=== PATIENT | male | born 1950 | race Caucasian/White ===

== ENCOUNTER → 2016-06-01 | Outpatient (CLI) | payer OTHER ==
[~2016-06-01] MED LIST: ARC10 PO; ASPCH81 PO; LVTUNK; PRLSR20 PO; TPRSRUNK; [UNRECOGNIZED DRUG - CODE]
[2016-06-01 13:10] LABS: ALT/SGPT 27 U/L (12-78); BLOOD UREA NITROGEN 14 mg/dl (7-18); BUN/CREATININE RATIO 13.8 (10-20); CALCIUM 9.1 mg/dl (8.5-10.1); CARBON DIOXIDE 26 mmol/L (21-32); CHLORIDE 101 mmol/L (98-107); CHOLESTEROL 189 mg/dl (0-200); GLUCOSE 103 mg/dl (70-99); POTASSIUM 3.8 mmol/L (3.5-5.1); SODIUM 137 mmol/L (136-145)
[2016-06-01 13:15] LABS: ALB/GLOB RATIO 1.1 (0.9-2); ALKALINE PHOSPHATASE 80 U/L (45-117); AST/SGOT 21 U/L (15-37); CHOLESTEROL/HDL RATIO 4.2; HDL CHOLESTEROL 45 mg/dl; LDL CHOLESTEROL CALCULATED 122 mg/dl; TRIGLYCERIDES 109 mg/dl (0-150); VERY LOW DENSITY LIPOPROT CALC 22 mg/dl
[2016-06-01 13:24] LABS: ESTIMATED AVERAGE GLUCOSE 111 mg/dl; HA1C FLAG Normal (Normal)
== END | disposition home or self-care (01) ==
LOC: C.LABPVFM 09:42
PROVIDERS: ATTEND Nurse Practitioner
DX: I10 Essential (primary) hypertension (principal); R73.01 Impaired fasting glucose; Z13.220 Encounter for screening for lipoid disorders

== ENCOUNTER 2016-08-08 11:44 | Emergency (ER) | payer OTHER ==
[~2016-08-08] VITALS: Ht 182.9 cm; Wt 128.3 kg
[2016-08-08 12:02] VITALS: TEMP 37.6; Ht 182.9 cm; Wt 128.3 kg
--- NOTE | 2016-08-08 13:07 | EMERGENCY ROOM VISIT NOTE ---
History Report prepared by Tima: Kate Salamanca Under the Supervision of: Dr. Juan Alberto Ling D.O. First contact with patient: 12:42 Chief Complaint: RECTAL PAIN Stated Complaint: RECTUM History of Present Illness The patient is a 65 year old male who presents to the Emergency Room with complaints of persistent rectal pain that began a couple weeks ago. He currently rates his discomfort as a 10/10 in severity. The patient states that he thinks he has something lodged in his rectum. He describes his pain as a sharp pain. The patient states that he thought he had a fissure again, but states that his pain has continued to worsen. The patient states that he was at [facility] today and was referred to the emergency department for further work up. He denies any nausea, vomiting, or diarrhea. Source of History: patient Onset: couple weeks ago Position: other (Rectal) Symptom Intensity: 10/10 Quality: sharp Timing: worsening, other (persistent) Associated Symptoms: No diarrhea, No nausea, No vomiting Review of Systems See HPI for pertinent positives & negatives. A total of 10 systems reviewed and were otherwise negative. Past Medical & Surgical No pertinent history stated. Family History Lung disease Stroke Social History Smoking Status: Never Smoker Marital Status: Housing Status: lives with significant other Occupation Status: disabled Current/Historical Medications Unable to Obtain Active Prescriptions or Reported Meds Allergies Coded Allergies: No Known Allergies (Verified , 08/08/16) Physical Exam Vital Signs Date Time Temp Pulse Resp B/P Pulse Ox O2 Delivery O2 Flow Rate FiO2 08/08/16 12:02 37.6 91 20 142/78 91 Room Air Physical Exam CONSTITUTIONAL/VITAL SIGNS: Reviewed / noted above. GENERAL: Non-toxic in appearance. INTEGUMENTARY: Warm, dry, and [place]. HEAD: Normocephalic. EYES: without scleral icterus or trauma. ENT/OROPHARYNX: clear and moist. LYMPHADENOPATHY/NECK: Is supple without lymphadenopathy or meningismus. RESPIRATORY: Lungs clear and equal. CARDIOVASCULAR: Regular rate and rhythm. GI/ABDOMEN: Soft and nontender. No organomegaly or pulsatile mass. No rebound or guarding. Normal bowel sounds. EXTREMITIES: Warm and well perfused. BACK: No CVA tenderness. RECTAL: There is a bone-like structure in the rectum at the 8 o'clock position that was spine like NEUROLOGICAL: Intact without focal deficits. PSYCHIATRIC: normal affect. MUSCULOSKELETAL: Normally developed with good muscle tone. Medical Decision & Procedures Procedure Foreign body removal: a iris like foreign body measuring about 2 cm in diameter with 2 small spines was removed from the rectum imbedded in the mucosa. No evidence of infection. Minimal bleeding following the procedure. ED Course 1243: Previous medical records were reviewed. The patient was evaluated in room C3. A complete history and physical examination was performed. 1247: I did a rectal exam at this time. See physical exam for further detail. I discussed all the exam findings with him and I discussed the treatment plan. He verbalized complete understanding and agreement. He is ready to go home shortly. Medical Decision Differential includes fissure, mass, hemorrhoid, foreign body. This is a 65-year-old male who presents to the ED with a chief complaint of a foreign body in his rectal area. The patient states that his been therefore at least a week or 2. He states that it is irritating him as it is poking him with certain movements. He is unsure how it got there. He denies intentionally placing anything there. His exam reveals a osseous spiny-like structure at the 7 or 8 o'clock position of the rectum. This is palpable and somewhat visible by spreading the buttocks. Forceps were used to grab the osseous-like structure. It was broken into 3 parts. These were removed. There was no evidence of any residual foreign body there. It has the appearance of a bony type structure with 2 small spiny parts. Total size is about 2 cm. The patient stated that his symptoms improved. He was feeling better. Reexam did not reveal any additional foreign bodies. He was felt to be stable for discharge. There is minimal bleeding at the site after removal. The bony object appear to be partially embedded into the mucosa of the rectum. Impression Primary Impression: Foreign body anus/rectum Scribe Attestation The scribe's documentation has been prepared under my direction and personally reviewed by me in its entirety. I confirm that the note above accurately reflects all work, treatment, procedures, and medical decision making performed by me. Departure Information Dispostion Home / Self-Care Prescriptions Unable to Obtain Active Prescriptions or Reported Meds Referrals Carmelina Hager C.R.N.P (PCP) Patient Instructions My [facility] Additional Instructions Follow-up with your doctor for recheck. Return for any concerns or worsening.
[2016-08-08 13:18] VITALS: BP 112/78; PULSE 87; O2SAT 94
== END 2016-08-08 13:18 | disposition home or self-care (01) ==
LOC: C.EDB 11:45 → C.EDC 13:18
DX: T18.5XXA Foreign body in anus and rectum, initial encounter (principal); X58.XXXA Exposure to other specified factors, initial encounter; Y92.89 Other specified places as the place of occurrence of the external cause

== ENCOUNTER → 2016-08-08 | Outpatient (CLI) | payer OTHER ==
--- NOTE | 2016-08-08 10:57 | DIAGNOSTIC IMAGING REPORT ---
KUB CLINICAL HISTORY: FOREIGN BODY ANUS/RECTUM foreign body COMPARISON STUDY: No previous studies for comparison. FINDINGS: The soft tissues, psoas shadows, renal outlines and intestinal gas pattern appear normal. There is no evidence for bowel obstruction. No abnormal abdominal calcifications are seen. IMPRESSION: Negative study. No evidence for radiopaque foreign body. Electronically signed by: Dony Wayne M.D. 08/08/2016 10:56 AM Dictated Date/Time: 08/08/2016 10:56 AM
== END | disposition home or self-care (01) ==
LOC: C.RADPV 10:38
PROVIDERS: ATTEND Nurse Practitioner Family
DX: T18.5XXA Foreign body in anus and rectum, initial encounter (principal); X58.XXXA Exposure to other specified factors, initial encounter

== ENCOUNTER → 2016-12-07 | Outpatient (CLI) | payer OTHER ==
--- NOTE | 2016-12-07 10:00 | DIAGNOSTIC IMAGING REPORT ---
CHEST 2 VIEWS ROUTINE CLINICAL HISTORY: 65 years-old Male presenting with CHEST DISCOMFORT. TECHNIQUE: PA and lateral views of the chest were obtained. COMPARISON: None. FINDINGS: Cardiomediastinal silhouette normal. Lungs and pleural spaces clear. Degenerative changes of the thoracic spine. Upper abdomen normal. IMPRESSION: 1. No acute cardiopulmonary disease. Electronically signed by: David Grant M.D. 12/07/2016 9:58 AM Dictated Date/Time: 12/07/2016 9:57 AM
[2016-12-07 12:54] LABS: ESTIMATED AVERAGE GLUCOSE 120 mg/dl; HA1C FLAG Normal (Normal)
[2016-12-07 13:32] LABS: BLOOD UREA NITROGEN 14 mg/dl (7-18); BUN/CREATININE RATIO 13.1 (10-20); CALCIUM 9.3 mg/dl (8.5-10.1); CARBON DIOXIDE 30 mmol/L (21-32); CHLORIDE 98 mmol/L (98-107); CHOLESTEROL 183 mg/dl (0-200); GLUCOSE 113 mg/dl (70-99); POTASSIUM 4.2 mmol/L (3.5-5.1); SODIUM 135 mmol/L (136-145); TRIGLYCERIDES 100 mg/dl (0-150); VERY LOW DENSITY LIPOPROT CALC 20 mg/dl
[2016-12-07 13:44] LABS: HDL CHOLESTEROL 46 mg/dl; LDL CHOLESTEROL CALCULATED 117 mg/dl
== END | disposition home or self-care (01) ==
LOC: C.RADPV 09:35
PROVIDERS: ATTEND Nurse Practitioner
DX: R07.89 Other chest pain (principal); R06.09 Other forms of dyspnea; I10 Essential (primary) hypertension; Z13.220 Encounter for screening for lipoid disorders; R73.01 Impaired fasting glucose; E03.9 Hypothyroidism, unspecified

== ENCOUNTER → 2017-06-05 | Outpatient (CLI) | payer OTHER ==
[2017-06-05 12:47] LABS: BLOOD UREA NITROGEN 14 mg/dl (7-18); GLUCOSE 113 mg/dl (70-99)
[2017-06-05 12:48] LABS: CALCIUM 9.4 mg/dl (8.5-10.1); CARBON DIOXIDE 30 mmol/L (21-32); SODIUM 133 mmol/L (136-145)
[2017-06-05 12:54] LABS: HEMOGLOBIN A1C 5.8 % (4.5-5.6)
== END | disposition home or self-care (01) ==
LOC: C.LABPVFM 10:07
PROVIDERS: ATTEND Nurse Practitioner
DX: I10 Essential (primary) hypertension (principal); R73.01 Impaired fasting glucose

== ENCOUNTER → 2017-08-03 | Outpatient (CLI) | payer OTHER ==
--- NOTE | 2017-08-03 08:18 | DIAGNOSTIC IMAGING REPORT ---
CHEST 2 VIEWS ROUTINE CLINICAL HISTORY: Pleuritic chest pain COMPARISON STUDY: 12/07/2016 FINDINGS: The cardiac and mediastinal contours remain stable. There is a prominent left cardiophrenic angle fat pad. There is stable borderline elevation of the right hemidiaphragm. There is no focal pulmonary consolidation. There is no failure. No pleural effusions are visualized.[ IMPRESSION: No active disease in the chest. Electronically signed by: Henri Correia M.D. 08/03/2017 8:17 AM Dictated Date/Time: 08/03/2017 8:16 AM
--- NOTE | 2017-08-03 08:23 | DIAGNOSTIC IMAGING REPORT ---
THORACIC SPINE 3 VIEWS HISTORY: MID BACK PAIN COMPARISON: Chest 12/07/2016. FINDINGS: There is no fracture. No subluxation. Paraspinal soft tissues are unremarkable. Flowing anterior osteophytes seen within the mid to lower thoracic spine. Disc spaces are relatively preserved for age. IMPRESSION: No fracture or subluxation within the thoracic spine. Electronically signed by: Rashaad Aguero M.D. 08/03/2017 8:22 AM Dictated Date/Time: 08/03/2017 8:19 AM
[2017-08-03 12:26] LABS: BASO % 1.3 %; EOS % 3.1 %; EOS ABS # 0.24 K/uL (0-0.5); HEMATOCRIT 43.1 % (42-52); HEMOGLOBIN 14.8 g/dL (14.0-18.0); IG# 0.02 K/uL (0.00-0.02); LYMPH % 39.4 %; LYMPH ABS # 3.01 K/uL (1.2-3.4); MEAN CELL VOLUME 94.1 fL (80-100); MEAN CORPUSCULAR HEMOGLOBIN 32.3 pg (25-34); MEAN CORPUSCULAR HGB CONC 34.3 g/dl (32-36); MEAN PLATELET VOLUME 10.7 fL (7.4-10.4); MONO % 11.3 %; MONO ABS # 0.86 K/uL (0.11-0.59); NEUT % 44.6 %; NUCLEATED RED BLOOD CELL ABS 0.02 K/uL (0-0); PLATELET COUNT 251 K/uL (130-400); RED CELL DISTRIBUTION WIDTH CV 14.2 % (11.5-14.5); RED CELL DISTRIBUTION WIDTH SD 48.4 fL (36.4-46.3); WHITE BLOOD COUNT 7.63 K/uL (4.8-10.8)
[2017-08-03 13:11] LABS: BLOOD UREA NITROGEN 12 mg/dl (7-18); CALCIUM 8.7 mg/dl (8.5-10.1); CARBON DIOXIDE 27 mmol/L (21-32); GLUCOSE 108 mg/dl (70-99); POTASSIUM 4.3 mmol/L (3.5-5.1); SODIUM 134 mmol/L (136-145)
== END | disposition home or self-care (01) ==
LOC: C.LABPVFM 07:53
PROVIDERS: ATTEND Nurse Practitioner Family
DX: R07.81 Pleurodynia (principal); M54.9 Dorsalgia, unspecified

== ENCOUNTER 2020-12-18 00:49 | Inpatient (IN) ==
[2020-12-18] MEDS ORDERED: ALBUT/IPRATROP 3MG/0.5MG NEB 3 ML VIAL NEB STA (01:23)
[2020-12-18 01:37] LABS: Basophils # (auto) 0.06 K/uL (0-0.2); Basophils % (auto) 0.7 %; Eosinophils # (auto) 0.32 K/uL (0-0.5); Eosinophils % (auto) 3.6 %; Hematocrit (blood only) 41.7 % (42-52); Hemoglobin 13.9 g/dL (14.0-18.0); Immature Granulocytes # (auto) 0.02 K/uL (0.00-0.02); Immature Granulocytes % (auto) 0.2 %; Lymphocytes # (auto) 2.52 K/uL (1.2-3.4); Lymphocytes % (auto) 28.7 %; Mean Corpuscular Hemoglobin 32.1 pg (25-34); Mean Corpuscular Hgb Conc 33.3 g/dL (32-36); Mean Corpuscular Volume 96.3 fL (80-100); Mean Platelet Volume 10.5 fL (7.4-10.4); Monocytes # (auto) 0.91 K/uL (0.11-0.59); Monocytes % (auto) 10.4 %; Neutrophils # (auto) 4.95 K/uL (1.4-6.5); Neutrophils % (auto) 56.4 %; Nucleated RBC # (auto) 0.06 K/uL (0-0); Nucleated RBC % (auto) 0.7 %; Platelet Count 216 K/uL (130-400); RDW Coefficient of Variation 14.8 % (11.5-14.5); RDW Standard Deviation 52.4 fL (36.4-46.3); Red Blood Count 4.33 M/uL (4.7-6.1); White Blood Count 8.78 K/uL (4.8-10.8)
[2020-12-18 01:43] LABS: Alanine Aminotransferase 63 U/L (12-78); Albumin Level 3.6 gm/dl (3.4-5.0); Aspartate Aminotransferase 38 U/L (15-37); BUN Creatinine Ratio 15.5 (10-20); Blood Urea Nitrogen 15 mg/dl (7-18); Calcium 8.4 mg/dl (8.5-10.1); Carbon Dioxide 26 mmol/L (21-32); Chloride 106 mmol/L (98-107); Creatinine Clr Calc Pharmacy 101.4 ml/min; Est GFR (Non-African American) 75.9 ml/min; Glucose 119 mg/dl (70-99); Lipase 158 U/L (73-393); Potassium 3.4 mmol/L (3.5-5.1); Sodium 138 mmol/L (136-145)
[2020-12-18 01:47] LABS: Albumin Globulin Ratio 1.1 (0.9-2); Alkaline Phosphatase 73 U/L (45-117); Bilirubin,Total 0.6 mg/dl (0.2-1); Globulin 3.2 gm/dl (2.5-4.0); Total Protein 6.8 gm/dl (6.4-8.2); Troponin I < 0.015 ng/ml (0-0.045)
[2020-12-18 01:53] LABS: D Dimer 500 ug/L FEU (0-500); INR 1.1 (0.9-1.1); Partial Thromboplastin Ratio 1.1; Prothrombin Time 10.9 Seconds (9.0-12.0)
[2020-12-18] MEDS ORDERED: dilTIAZem HCl 5 MG/ML 5 ML VIAL IV STA (01:56)
[2020-12-18] MEDS ORDERED: FUROSEMIDE 40 MG/4 ML VIAL IV STA (01:56)
[2020-12-18] MEDS ORDERED: STAT IV Infusion **Titration per Protocol STA (02:38)
[2020-12-18] MEDS ORDERED: dilTIAZem HCL 125 MG in DEXTROSE 5% 100 ML IV SCH (02:45)
[2020-12-18] MEDS ORDERED: POTASSIUM CHLORIDE CRTAB 20 MEQ TABCR PO STA (02:58)
[2020-12-18] MEDS ORDERED: METOPROLOL SUCC 50MG EXT REL TAB PO STA (03:17)
[2020-12-18] MEDS ORDERED: METOPROLOL TARTRATE 1 MG/ML VIAL IV STA ×2 (03:17→03:57)
[2020-12-18] MEDS ORDERED: METOPROLOL TARTRATE 1 MG/ML VIAL IV ONE (03:21)
--- NOTE | 2020-12-18 04:08 | Emergency Department Note ---
Impression & Plan Atrial fibrillation with rapid ventricular response, Pulmonary edema Admit to the [facility] ED Provider Note NAME: MEMO GAGE AGE: 70 SEX: M ARRIVES VIA: Walk-In INFORMANT: Patient the patient's ED PROVIDER(S): Michelle Beckham DO CHIEF COMPLAINT: Shortness of breath and chest pain PLAN: Disposition: Admitted to the [facility] service Condition: Guarded MEDICAL DECISION MAKING: This is a 70-year-old male patient who presents to the emergency department with progressing shortness of breath. The patient developed chest pain this evening along with a productive cough. He states that he was more concerned tonight because he was so dizzy and could not walk. Chest x-ray shows evidence of acute pulmonary edema. The patient is in A. fib with RVR. Initially, he was treated with a dose of IV Cardizem and then placed on an IV Cardizem drip. He then received a dose of IV Lasix. The patient began to diurese. [facility] for further management. Triage Nursing notes reviewed and agree with them. Additional history obtained from his is at the bedside Prior medical records reviewed Vital Signs: reviewed and remarkable for tachycardia, hypertension Differential diagnosis: CHF, cardiac dysrhythmia, STEMI ER treatment provided: IV Cardizem IV Lasix IV Cardizem drip Diagnostics interpreted by me: ECG: Atrial fibrillation with rapid ventricular response at a rate of 122. There is ST segment depression noted in the anterior leads. This is concerning for slight ischemia. Cardiac Monitoring: Atrial fibrillation with rapid ventricular response at a rate of 133. Laboratory studies: See below Imaging studies: As per my interpretation Portable chest x-ray: Pulmonary edema HPI: 70/M arrives for evaluation of chest pain shortness of. The patient presents to the emergency department with increasing shortness of breath, wheezing and productive cough. Patient states that he has been having a funny taste in his mouth over the past couple of days. He has become increasingly dizzy and felt that he could not walk or feel steady on his feet. ROS: See above HPI for pertinent positives & negatives. A total of 10 systems reviewed and were otherwise negative. PAST MEDICAL HISTORY:See Below PAST SURGICAL HISTORY:See Below FAMILY HISTORY:See Below SOCIAL HISTORY:See Below HOME MEDICATIONS:See Below ALLERGIES:See Below VITALS:See Below PHYSICAL EXAMINATION: HEENT: Head - normocephalic and atraumatic Pupils are equal, round, and reactive to light. Extraocular eye muscles are intact, and sclera are anicteric. Nose - moist nasal mucosa without discharge. Mouth - moist buccal mucosa. Oropharynx is nonerythematous and there is no tonsillar exudate or edema noted. Neck: Supple; no JVD or cervical lymphadenopathy Heart: Irregularly irregular rhythm with a tachycardic rate there is a normal S1 and S2 with no murmurs, clicks, or gallops appreciated. Lungs: Clear to auscultation bilaterally with no wheezes, rales, or rhonchi. Abdomen: Soft, completely nontender, nondistended, with good bowel sounds. There are no palpable pulsatile masses or hepatosplenomegaly. There is no guarding, rigidity, or rebound noted. Extremities: Trace pedal edema there are easily palpable peripheral pulses. Skin: warm and dry with good turgor and no rashes. ED COURSE: Times/Reassessments: 0105: The patient was evaluated in room A 9. A complete history and physical was performed. A twelve-lead EKG was obtained as described above. An order was placed for continuous cardiac monitoring. The patient was in A. fib with RVR at a rate of 133. Laboratory studies were drawn as above. Portable chest x-ray was performed as described above. Patient was given 20 mg of IV Cardizem along with 40 mg of IV Lasix. Patient was also then put on a IV Cardizem drip to control his rate. He did have the starts of diuresis. The patient was feeling slightly better. I discussed the case with the [facility] hospitalist and they will evaluate for further management. I have personally spent greater than 60 minutes of critical care time in the direct management of this patient. This includes bedside care, interpretation of diagnostic studies, and testing, discussion with consultants, patient, and family members, and other required patient management activities. This 60 minutes is in excess of all separately billable procedures. Michelle Beckham DO Past Med/Surg History Medical History (Updated 12/20/20 @ 07:12 by Michelle Beckham DO) Community acquired pneumonia History of itching Influenza B Pneumonitis due to fumes and vapors Surgical History History of elbow surgery Family History Denies family history of Ovarian cancer Prostate cancer Myocardial infarction Breast cancer Colorectal cancer Social History Smoking Status: Former smoker Second Hand Exposure: Yes; Hx Alcohol Use: No Hx Substance Use: No Preferred Language: Polish Communication Ability: Effective Creative Assistant Required: No Beliefs That Will Affect Care: None marital status: Current Living Situation: Spouse current occupational status: retired Feels Safe at Home: Yes caffeine: Yes (coffee) Dental Care, Regularly: No Physical Activity Frequency: 3-4 Times per Week Seatbelt Use: sometimes Sunscreen Use: No Assistive Devices: None Allergies Allergies Allergy/AdvReac Type Severity Reaction Status Date / Time No Known Allergies Allergy Verified 12/18/20 01:39 Home Meds Home Medications Medication Instructions Recorded Confirmed allopurinol 100 mg tablet 100 mg PO DAILY 12/18/20 12/18/20 baclofen 10 mg tablet 10 mg PO BID PRN 12/18/20 12/18/20 citalopram 40 mg tablet 40 mg PO QAM 12/18/20 12/18/20 donepezil 10 mg tablet 10 mg PO DAILY 12/18/20 12/18/20 fluticasone propionate 50 1 spray INTRANASAL BID PRN 12/18/20 12/18/20 mcg/actuation nasal spray,suspension levothyroxine 50 mcg tablet 50 mcg PO QAM 12/18/20 12/18/20 lisinopril 20 1 tab PO DAILY 12/18/20 12/18/20 mg-hydrochlorothiazide 25 mg tablet rivaroxaban 20 mg tablet (Xarelto) 20 mg PO QDD 12/18/20 12/18/20 Previous Rx's Medication Instructions Recorded omeprazole 20 mg capsule,delayed 20 mg PO DAILY #90 cap 05/27/20 release levocetirizine 5 mg tablet 5 mg PO DAILY PRN #90 tab 06/03/20 metoprolol succinate 50 mg 75 mg PO BID #90 tab 12/18/20 tablet,extended release 24 hr Results & Data (ED) Vital Signs Vital Signs - 24 hr 12/18/20 00:49 12/18/20 00:54 12/18/20 01:04 Temperature 37.1 C 36.4 C L Temperature Source Oral Temporal Artery Scan Pulse Rate 119 H 119 H Pulse Rate [Apical] 134 H Pulse Rate from SpO2 Sensor 109 H Pulse Rhythm [Apical] Irregular Respiratory Rate 20 22 24 Respiratory Effort / Characteristics Short of Breath Non-Labored Spontaneous Respiratory Depth Normal Respiratory Pattern Regular Blood Pressure 154/98 H 162/105 H Blood Pressure Mean 116 124 Pulse Oximetry 94 94 Oxygen Delivery Method Room Air Oxygen Flow Rate Fraction of Inspired Oxygen Sepsis Recent Fever Within 48 Hours No Sepsis New/Unexplained Change in Mental Status No Sepsis Action Taken by Nursing No Action Required 12/18/20 01:23 12/18/20 01:25 12/18/20 01:30 Temperature Temperature Source Pulse Rate 107 H Pulse Rate [Apical] Pulse Rate from SpO2 Sensor 112 H Pulse Rhythm [Apical] Respiratory Rate 17 Respiratory Effort / Characteristics Respiratory Depth Respiratory Pattern Blood Pressure 159/109 H Blood Pressure Mean 125 Pulse Oximetry 89 L 94 94 Oxygen Delivery Method Room Air Nasal Cannula Oxygen Flow Rate 2 Fraction of Inspired Oxygen Sepsis Recent Fever Within 48 Hours Sepsis New/Unexplained Change in Mental Status Sepsis Action Taken by Nursing 12/18/20 01:40 12/18/20 02:00 12/18/20 02:40 Temperature Temperature Source Pulse Rate 135 H 120 H Pulse Rate [Apical] 115 H Pulse Rate from SpO2 Sensor 135 H Pulse Rhythm [Apical] Respiratory Rate 25 H 19 18 Respiratory Effort / Characteristics Spontaneous Labored Short of Breath Respiratory Depth Respiratory Pattern Blood Pressure 155/102 H 150/88 H Blood Pressure Mean 119 108 Pulse Oximetry 94 94 Oxygen Delivery Method Room Air Oxygen Flow Rate Fraction of Inspired Oxygen 21 Sepsis Recent Fever Within 48 Hours Sepsis New/Unexplained Change in Mental Status Sepsis Action Taken by Nursing 12/18/20 03:25 Temperature Temperature Source Pulse Rate 135 H Pulse Rate [Apical] Pulse Rate from SpO2 Sensor Pulse Rhythm [Apical] Respiratory Rate Respiratory Effort / Characteristics Respiratory Depth Respiratory Pattern Blood Pressure 152/92 H Blood Pressure Mean Pulse Oximetry Oxygen Delivery Method Oxygen Flow Rate Fraction of Inspired Oxygen Sepsis Recent Fever Within 48 Hours Sepsis New/Unexplained Change in Mental Status Sepsis Action Taken by Nursing Laboratory Data Result diagrams: 12/18/20 01:14 12/18/20 01:14 Lab Results 12/18/20 12/18/20 12/18/20 Range/Units 01:14 01:14 01:14 WBC 8.78 (4.8-10.8) K/uL RBC 4.33 L (4.7-6.1) M/uL Hgb 13.9 L (14.0-18.0) g/dL Hct 41.7 L (42-52) % MCV 96.3 (80-100) fL MCH 32.1 (25-34) pg MCHC 33.3 (32-36) g/dL RDW Std Deviation 52.4 H (36.4-46.3) fL RDW Coeff of Tommy 14.8 H (11.5-14.5) % Plt Count 216 (130-400) K/uL MPV 10.5 H (7.4-10.4) fL Immature Gran % (Auto) 0.2 % Neut % (Auto) 56.4 % Lymph % (Auto) 28.7 % Dixon % (Auto) 10.4 % Eos % (Auto) 3.6 % Baso % (Auto) 0.7 % Neut # (Auto) 4.95 (1.4-6.5) K/uL Lymph # (Auto) 2.52 (1.2-3.4) K/uL Dixon # (Auto) 0.91 H (0.11-0.59) K/uL Eos # (Auto) 0.32 (0-0.5) K/uL Baso # (Auto) 0.06 (0-0.2) K/uL Immature Gran # (Auto) 0.02 (0.00-0.02) K/uL Absolute Nucleated RBC 0.06 H (0-0) K/uL Nucleated RBC % (auto) 0.7 % PT 10.9 (9.0-12.0) Seconds INR 1.1 (0.9-1.1) APTT 29.0 (21.0-31.0) Seconds PTT Ratio 1.1 D-Dimer 500 (0-500) ug/L FEU Sodium 138 (136-145) mmol/L Potassium 3.4 L (3.5-5.1) mmol/L Chloride 106 (98-107) mmol/L Carbon Dioxide 26 (21-32) mmol/L Anion Gap 6.0 (3-11) BUN 15 (7-18) mg/dl Creatinine 1.00 (0.6-1.4) mg/dl Est Cr Clr Drug Dosing 101.4 ml/min Est GFR ( Amer) 88.0 ml/min Est GFR (Non-Af Amer) 75.9 ml/min BUN/Creatinine Ratio 15.5 (10-20) Glucose 119 H (70-99) mg/dl Calcium 8.4 L (8.5-10.1) mg/dl Total Bilirubin 0.6 (0.2-1) mg/dl AST 38 H (15-37) U/L ALT 63 (12-78) U/L Alkaline Phosphatase 73 (45-117) U/L Troponin I < 0.015 (0-0.045) ng/ml Total Protein 6.8 (6.4-8.2) gm/dl Albumin 3.6 (3.4-5.0) gm/dl Globulin 3.2 (2.5-4.0) gm/dl Albumin/Globulin Ratio 1.1 (0.9-2) Lipase 158 (73-393) U/L TSH (0.300-4.500) uIu/ml COVID-19 Eval Order SARS-CoV-2 (PCR) (Negative) 12/18/20 12/18/20 12/18/20 Range/Units 01:14 01:55 01:55 WBC (4.8-10.8) K/uL RBC (4.7-6.1) M/uL Hgb (14.0-18.0) g/dL Hct (42-52) % MCV (80-100) fL MCH (25-34) pg MCHC (32-36) g/dL RDW Std Deviation (36.4-46.3) fL RDW Coeff of Tommy (11.5-14.5) % Plt Count (130-400) K/uL MPV (7.4-10.4) fL Immature Gran % (Auto) % Neut % (Auto) % Lymph % (Auto) % Dixon % (Auto) % Eos % (Auto) % Baso % (Auto) % Neut # (Auto) (1.4-6.5) K/uL Lymph # (Auto) (1.2-3.4) K/uL Dixon # (Auto) (0.11-0.59) K/uL Eos # (Auto) (0-0.5) K/uL Baso # (Auto) (0-0.2) K/uL Immature Gran # (Auto) (0.00-0.02) K/uL Absolute Nucleated RBC (0-0) K/uL Nucleated RBC % (auto) % PT (9.0-12.0) Seconds INR (0.9-1.1) APTT (21.0-31.0) Seconds PTT Ratio D-Dimer (0-500) ug/L FEU Sodium (136-145) mmol/L Potassium (3.5-5.1) mmol/L Chloride (98-107) mmol/L Carbon Dioxide (21-32) mmol/L Anion Gap (3-11) BUN (7-18) mg/dl Creatinine (0.6-1.4) mg/dl Est Cr Clr Drug Dosing ml/min Est GFR ( Amer) ml/min Est GFR (Non-Af Amer) ml/min BUN/Creatinine Ratio (10-20) Glucose (70-99) mg/dl Calcium (8.5-10.1) mg/dl Total Bilirubin (0.2-1) mg/dl AST (15-37) U/L ALT (12-78) U/L Alkaline Phosphatase (45-117) U/L Troponin I (0-0.045) ng/ml Total Protein (6.4-8.2) gm/dl Albumin (3.4-5.0) gm/dl Globulin (2.5-4.0) gm/dl Albumin/Globulin Ratio (0.9-2) Lipase (73-393) U/L TSH 4.430 (0.300-4.500) uIu/ml COVID-19 Eval Order Covid19 at [facility] SARS-CoV-2 (PCR) NEGATIVE (Negative) Administered Medications Discontinued Medications Acetaminophen (Acetaminophen 325 Mg Tab) 650 mg PO Q4H PRN PRN Reason: Pain or Fever Stop: 01/17/21 05:22 Last Admin: 12/18/20 09:54 Dose: 650 mg Documented by: [id number] Albuterol (Albut/Ipratrop 3mg/0.5mg Neb 3 Ml Vial) 3 ml NEB NOW STA Stop: 12/18/20 01:24 Last Admin: 12/18/20 01:38 Dose: 3 ml Documented by: [id number] Allopurinol (Allopurinol 100 Mg Tab) 100 mg PO DAILY SOL Stop: 01/17/21 08:59 Last Admin: 12/18/20 08:39 Dose: 100 mg Documented by: [id number] Citalopram Hydrobromide (Citalopram 40 Mg Tab) 40 mg PO QAM SOL Stop: 01/17/21 08:59 Last Admin: 12/18/20 08:38 Dose: 40 mg Documented by: [id number] Diltiazem HCl (Diltiazem Hcl 5 Mg/Ml 5 Ml Vial) 20 mg IV NOW STA Stop: 12/18/20 01:57 Last Admin: 12/18/20 02:09 Dose: 20 mg Documented by: [id number] Cosigned by: [id number] Donepezil HCl (Donepezil Hcl 10 Mg Tab) 10 mg PO DAILY SOL Stop: 01/17/21 08:59 Last Admin: 12/18/20 08:38 Dose: 10 mg Documented by: [id number] Furosemide (Furosemide 40 Mg/4 Ml Vial) 40 mg IV NOW STA Stop: 12/18/20 01:57 Last Admin: 12/18/20 02:09 Dose: 40 mg Documented by: [id number] Diltiazem HCl 125 mg/ Dextrose 125 mls @ 5 mls/hr IV .Q24H SOL; Protocol Stop: 01/17/21 02:44 Last Titration: 12/18/20 03:50 Dose: 0 mg/hr, 0 mls/hr Documented by: [id number] Cosigned by: [id number] Admin: 12/18/20 03:00 Dose: 5 mg/hr, 5 mls/hr Documented by: [id number] Cosigned by: [id number] Potassium Chloride/Sodium Chloride (Normal Saline W/20 Meq Kcl) 20 meq in 1,000 mls @ 100 mls/hr IV .Q10H SOL Stop: 12/18/20 09:44 Last Infusion: 12/18/20 09:33 Dose: 0 mls/hr Documented by: [id number] Infusion: 12/18/20 09:33 Dose: 0 mls/hr Documented by: [id number] Admin: 12/18/20 06:04 Dose: 100 mls/hr Documented by: [id number] Furosemide 40 mg/ Syringe 4 mls @ 4 mls/min IV 0930 ONE Stop: 12/18/20 09:31 Last Admin: 12/18/20 09:53 Dose: 4 mls/min Documented by: [id number] Levothyroxine Sodium (Levothyroxine Sodium 50 Mcg Tablet) 50 mcg PO DAILYBB SOL Stop: 01/17/21 06:29 Last Admin: 12/18/20 06:26 Dose: 50 mcg Documented by: [id number] Metoprolol Succinate (Metoprolol Succ 50mg Ext Rel Tab) 50 mg PO NOW STA Stop: 12/18/20 03:18 Last Admin: 12/18/20 03:33 Dose: 50 mg Documented by: [id number] Metoprolol Succinate (Metoprolol Succ 50mg Ext Rel Tab) 50 mg PO BID [facility] Stop: 01/17/21 08:59 Last Admin: 12/18/20 08:39 Dose: 50 mg Documented by: [id number] Metoprolol Succinate (Metoprolol Succ 25mg Ext Rel Tab) 25 mg PO ONE ONE Stop: 12/18/20 12:31 Last Admin: 12/18/20 12:37 Dose: 25 mg Documented by: [id number] Metoprolol Tartrate (Metoprolol Tartrate 1 Mg/Ml Vial) 5 mg IV NOW STA Stop: 12/18/20 03:18 Last Admin: 12/18/20 03:29 Dose: Not Given Documented by: [id number] Metoprolol Tartrate (Metoprolol Tartrate 1 Mg/Ml Vial) Confirm Administered Dose 5 mg IV .STK-MED ONE Stop: 12/18/20 03:22 Last Admin: 12/18/20 03:25 Dose: 5 mg Documented by: [id number] Metoprolol Tartrate (Metoprolol Tartrate 1 Mg/Ml Vial) 5 mg IV NOW STA Stop: 12/18/20 03:58 Last Admin: 12/18/20 04:06 Dose: 5 mg Documented by: [id number] Miscellaneous (Stat Iv Infusion Titration Per Protocol) 1 ea N/A NOW STA Stop: 12/18/20 02:39 Last Admin: 12/18/20 03:30 Dose: Not Given Documented by: [id number] Pantoprazole Sodium (Pantoprazole 40 Mg Tab) 40 mg PO DAILY [facility]; Protocol Stop: 01/17/21 08:59 Last Admin: 12/18/20 08:38 Dose: 40 mg Documented by: [id number] Potassium Chloride (Potassium Chloride Crtab 20 Meq Tabcr) 40 meq PO NOW STA Stop: 12/18/20 02:59 Last Admin: 12/18/20 03:13 Dose: 40 meq Documented by: [id number] Discharge Plan Visit Data Chief Complaint: Respiratory Problems Stated Complaint: HARD TO BREATHE ED Provider: Michelle Beckham Discharge Problem: Atrial fibrillation with rapid ventricular response, Pulmonary edema Patient Disposition: Admitted As Inpatient Condition: Good Discharge Instructions Interventions: ED Discharge Assessment Last Done: 12/18/20 05:19
--- NOTE | 2020-12-18 04:10 | History & Physical Report ---
Date of Service December 18, 2020 Assessment & Plan (1) Atrial fibrillation with RVR: Plan: Atrial fibrillation with RVR/persistent atrial fibrillation/hypertension/hypokalemia- The patient will be admitted to telemetry for serial cardiac enzymes, serial EKG's, cardiac rhythm monitoring.. Review of previous notes from ultimate hoops trainer and PCP in the outpatient setting Increase metoprolol succinate from 50 mg every morning to 50 mg twice daily, with first dose this evening Hold lisinopril/HCTZ for now Give Klor-Con 40 mEq p.o. now. The patient had already been given furosemide 40 mg IV by the ED, so may need to give an additional supplementation in the morning Continue Xarelto Echocardiogram has just been performed on 10/06/2020, and will not be repeated Lopressor 5 mg IV every 4 hours as needed heart rate greater than 110 Consult cardiology (2) Persistent atrial fibrillation: Plan: See above (3) Hypothyroidism: Plan: Continue levothyroxine 50 mcg every morning (4) Gout: Plan: Continue allopurinol 100 mg p.o. daily (5) Depression: Plan: Continue citalopram 40 mg every morning (6) Hypertension: (7) Alzheimer's disease: Plan: Continue donepezil 10 mg p.o. daily (8) GERD (gastroesophageal reflux disease): Plan: Continue omeprazole/pantoprazole 20 mg p.o. daily History of Present Illness Chief Complaint: The patient presents to the emergency department with complaint of 2 weeks of on and off chest discomfort, which intensified significantly this evening. Primary Care Provider: BETHANY Blair The patient is a 70-year-old male with a past medical history including persistent atrial fibrillation, impaired fasting glucose, chronic back pain, hypothyroidism, gout, depression, hypertension, SDAT, GERD, allergic rhinitis, muscle spasm and morbid obesity. He has had some medication adjustments a few weeks ago, and reports that since that time he has not felt as well, with symptoms of chest discomfort and shortness of breath. Assessment in the emergency department revealed atrial fibrillation with RVR with rate 140-150. He was initially given a Cardizem 20 mg IV bolus and then started on 5 mg/h continuous Cardizem infusion. This was then discontinued due to inadequate response. The patient was then given metoprolol succinate 50 mg p.o. x1, and Lopressor 5 mg IV x2, by 30 minutes. This brought his heart rate into the 90s, and still maintain good blood pressure. Allergies Allergy/AdvReac Type Severity Reaction Status Date / Time No Known Allergies Allergy Verified 12/18/20 01:39 Home Medications Medication Instructions Recorded Confirmed Type omeprazole 20 mg capsule,delayed 20 mg PO DAILY #90 cap 05/27/20 12/18/20 Rx release levocetirizine 5 mg tablet 5 mg PO DAILY PRN #90 tab 06/03/20 12/18/20 Rx metoprolol succinate 50 mg 50 mg PO DAILY #90 tab 10/05/20 12/18/20 Rx tablet,extended release 24 hr allopurinol 100 mg tablet 100 mg PO DAILY 12/18/20 12/18/20 History baclofen 10 mg tablet 10 mg PO BID PRN 12/18/20 12/18/20 History citalopram 40 mg tablet 40 mg PO QAM 12/18/20 12/18/20 History donepezil 10 mg tablet 10 mg PO DAILY 12/18/20 12/18/20 History fluticasone propionate 50 1 spray INTRANASAL BID PRN 12/18/20 12/18/20 History mcg/actuation nasal spray,suspension levothyroxine 50 mcg tablet 50 mcg PO QAM 12/18/20 12/18/20 History lisinopril 20 1 tab PO DAILY 12/18/20 12/18/20 History mg-hydrochlorothiazide 25 mg tablet rivaroxaban 20 mg tablet (Xarelto) 20 mg PO QDD 12/18/20 12/18/20 History Past Med/Surg History Medical History (Updated 12/18/20 @ 04:23 by Sd Linares MD) Community acquired pneumonia History of itching Influenza B Pneumonitis due to fumes and vapors Surgical History History of elbow surgery Family History Denies family history of Ovarian cancer Prostate cancer Myocardial infarction Breast cancer Colorectal cancer Social History Smoking Status: Never smoker Second Hand Exposure: Yes; Hx Alcohol Use: No Hx Substance Use: No Preferred Language: Serbian marital status: Current Living Situation: Spouse current occupational status: retired Feels Safe at Home: Yes caffeine: Yes (coffee) Dental Care, Regularly: No Physical Activity Frequency: 3-4 Times per Week Seatbelt Use: sometimes Sunscreen Use: No Review of Systems Review of Systems: The patient denies cough, lower extremity swelling, sore throat, fevers, chills, sweats, nausea, vomiting, diarrhea , constipation, abdominal pain, pelvic pain, blood in urine or stool, dysuria, urinary frequency or urgency, lightheadedness, dizziness, headache, loss of consciousness, rash, abnormal bruising or bleeding, imbalance, focal weakness, numbness or tingling in arms or legs, generalized arthralgias or myalgias, back or neck pain, or night sweats. The review of systems is otherwise negative other than for that already noted above, and at least 10 systems have been reviewed. Physical Exam Physical Exam: The patient is awake, alert and oriented 3, well developed and well nourished, normocephalic and atraumatic, lying in bed and in no acute distress. HEENT--PERRL, EOMI, mucous membranes and oropharynx normal. Neck--supple. No JVD. No bruits. Thyroid normal, trachea midline, no adenopathy. Heart--normal S1 and S2. No murmurs, rubs or gallops. Lungs--clear bilaterally, no respiratory distress, no accessory muscle use. Abdomen--normal bowel sounds and soft. Nontender. Nondistended. Morbidly obese Extremities--no cyanosis or clubbing. No edema. Dermatologic--normal skin turgor, normal color, no rash. Neurologic--cranial nerves II through XII grossly intact. Rheumatologic--normal range of motion. Psychiatric--normal affect. Results & Data Results & Data ([facility]) Vital Signs (Past 12 Hours) Vital Signs Temp Pulse Pulse Resp BP Pulse Ox 12/18/20 03:25 135 H 152/92 H 12/18/20 02:40 120 H 18 150/88 H 12/18/20 02:00 135 H 19 155/102 H 94 12/18/20 01:40 115 H 25 H 94 12/18/20 01:30 107 H 17 159/109 H 94 12/18/20 01:25 94 12/18/20 01:23 89 L 12/18/20 01:04 119 H 24 162/105 H 94 12/18/20 00:54 97.5 F L 119 H 22 154/98 H 94 12/18/20 00:49 98.8 F 134 H 20 Laboratory Results Laboratory Results WBC 8.78 K/uL (4.8-10.8) 12/18/20 01:14 RBC 4.33 M/uL (4.7-6.1) L 12/18/20 01:14 Hgb 13.9 g/dL (14.0-18.0) L 12/18/20 01:14 Hct 41.7 % (42-52) L 12/18/20 01:14 MCV 96.3 fL (80-100) 12/18/20 01:14 MCH 32.1 pg (25-34) 12/18/20 01:14 MCHC 33.3 g/dL (32-36) 12/18/20 01:14 RDW Std Deviation 52.4 fL (36.4-46.3) H 12/18/20 01:14 RDW Coeff of Tommy 14.8 % (11.5-14.5) H 12/18/20 01:14 Plt Count 216 K/uL (130-400) 12/18/20 01:14 MPV 10.5 fL (7.4-10.4) H 12/18/20 01:14 Immature Gran % (Auto) 0.2 % 12/18/20 01:14 Neut % (Auto) 56.4 % 12/18/20 01:14 Lymph % (Auto) 28.7 % 12/18/20 01:14 [place] % (Auto) 10.4 % 12/18/20 01:14 Eos % (Auto) 3.6 % 12/18/20 01:14 Baso % (Auto) 0.7 % 12/18/20 01:14 Neut # (Auto) 4.95 K/uL (1.4-6.5) 12/18/20 01:14 Lymph # (Auto) 2.52 K/uL (1.2-3.4) 12/18/20 01:14 [place] # (Auto) 0.91 K/uL (0.11-0.59) H 12/18/20 01:14 Eos # (Auto) 0.32 K/uL (0-0.5) 12/18/20 01:14 Baso # (Auto) 0.06 K/uL (0-0.2) 12/18/20 01:14 Immature Gran # (Auto) 0.02 K/uL (0.00-0.02) 12/18/20 01:14 Absolute Nucleated RBC 0.06 K/uL (0-0) H 12/18/20 01:14 Nucleated RBC % (auto) 0.7 % 12/18/20 01:14 PT 10.9 Seconds (9.0-12.0) 12/18/20 01:14 INR 1.1 (0.9-1.1) 12/18/20 01:14 APTT 29.0 Seconds (21.0-31.0) 12/18/20 01:14 PTT Ratio 1.1 12/18/20 01:14 D-Dimer 500 ug/L FEU (0-500) 12/18/20 01:14 Sodium 138 mmol/L (136-145) 12/18/20 01:14 Potassium 3.4 mmol/L (3.5-5.1) L 12/18/20 01:14 Chloride 106 mmol/L (98-107) 12/18/20 01:14 Carbon Dioxide 26 mmol/L (21-32) 12/18/20 01:14 Anion Gap 6.0 (3-11) 12/18/20 01:14 BUN 15 mg/dl (7-18) 12/18/20 01:14 Creatinine 1.00 mg/dl (0.6-1.4) 12/18/20 01:14 Est Cr Clr Drug Dosing 101.4 ml/min 12/18/20 01:14 Est GFR ( Amer) 88.0 ml/min 12/18/20 01:14 Est GFR (Non-Af Amer) 75.9 ml/min 12/18/20 01:14 BUN/Creatinine Ratio 15.5 (10-20) 12/18/20 01:14 Glucose 119 mg/dl (70-99) H 12/18/20 01:14 Calcium 8.4 mg/dl (8.5-10.1) L 12/18/20 01:14 Total Bilirubin 0.6 mg/dl (0.2-1) 12/18/20 01:14 AST 38 U/L (15-37) H 12/18/20 01:14 ALT 63 U/L (12-78) 12/18/20 01:14 Alkaline Phosphatase 73 U/L (45-117) 12/18/20 01:14 Troponin I < 0.015 ng/ml (0-0.045) 12/18/20 01:14 Total Protein 6.8 gm/dl (6.4-8.2) 12/18/20 01:14 Albumin 3.6 gm/dl (3.4-5.0) 12/18/20 01:14 Globulin 3.2 gm/dl (2.5-4.0) 12/18/20 01:14 Albumin/Globulin Ratio 1.1 (0.9-2) 12/18/20 01:14 Lipase 158 U/L (73-393) 12/18/20 01:14 COVID-19 Eval Order Covid19 at [facility] 12/18/20 01:55 SARS-CoV-2 (PCR) NEGATIVE (Negative) 12/18/20 01:55 ECG Additional Comments: MEMO GAGE ID:[id number] 18-DEC-2020 01:04:22 [facility]-EDSTAT ROUTINE RETRIEVAL Atrial fibrillation with rapid ventricular response Nonspecific ST and T wave abnormality Abnormal ECG When compared with ECG of 22-JAN-2001 12:12, Atrial fibrillation has replaced Sinus rhythm Nonspecific T wave abnormality, worse in Inferior leads 25mm/s 10mm/mV 150Hz 9.0.9 12SL 241 HD JULIAN: 12 Unconfirmed Vent. rate 122 BPM [place] interval * ms QRS duration 90 ms QT/QTc 310/441 ms P-R-T axes * 39 50 1950 (70 yr) Male 1in 1lb Room: Loc:15 Crossing Watchman:Katelyn Jarrett Test Code Status & VTE Plan Code Status Full code VTE Prophylaxis Plan VTE Prophylaxis will be ordered: Yes PG Care Time/CCT Total # of Minutes Spent Total Time Spent with Patient: Total time spent is greater than 50% in coordination of care (as documented) at patient's floor/unit and/or counseling patient: Coding Level of Care Code 32491 Initial Inpt Care Lvl 3 Diagnoses Atrial fibrillation with RVR I48.91 Persistent atrial fibrillation I48.19 Hypothyroidism E03.9 Gout M10.9 Depression F32.9 Hypertension I10 Alzheimer's disease G30.9; F02.80 GERD (gastroesophageal reflux disease) K21.9
[2020-12-18] MEDS ORDERED: METOPROLOL TARTRATE 1 MG/ML VIAL IV PRN (04:26)
[2020-12-18] MEDS ORDERED: NSS + 20MEQ KCL 20 MEQ/1,000 ML BAG IV SCH (04:45)
[2020-12-18] MEDS ORDERED: ONDANSETRON INJ 2 MG/ML 2 ML VIAL IV PRN (05:23)
[2020-12-18] MEDS ORDERED: FLUTICASONE PROPIONATE NA SPR 16 GM BTL PRN (05:23)
[2020-12-18] MEDS ORDERED: ACETAMINOPHEN 325 MG TAB PO PRN (05:23)
[2020-12-18] MEDS ORDERED: BACLOFEN 10 MG TAB PO PRN (05:23)
[2020-12-18] MEDS ORDERED: CETIRIZINE HCL 10 MG TABLET PO PRN (05:46)
[2020-12-18] MEDS ORDERED: LEVOTHYROXINE SODIUM 50 MCG TABLET PO SCH (06:30)
--- NOTE | 2020-12-18 06:31 | XRay Report ---
XR chest 1V portable CLINICAL HISTORY: Chest Pain COMPARISON STUDY: October 05, 2020 FINDINGS: No pneumothorax. No pleural effusion. Retrocardiac dense opacity partially silhouetting midportion of the left hemidiaphragm might represen t atelectasis or infiltrate. Reticular-nodular opacities are seen in bilateral bases and appear more prominent since prior study. Cardiomediastinal silhouette is within upper limits of normal. Mild pulmonary vascular congestion and prominence of bilateral hal are seen.. Osseous structures: Degenerative changes of the spine. IMPRESSION: 1. Pulmonary vascular congestion. Possible pulmonary edema. 2. Retrocardiac opacity might represent atelectasis or infiltrate. ACT 112: Negative or not required by law. The above report was generated using voice recognition software. It may contain grammatical, syntax o r spelling errors. Electronically signed by: Magalys Esquivel DO 12/18/2020 6:30 AM
--- NOTE | 2020-12-18 08:25 | Cardiology Consultation ---
Date of Consultation December 18, 2020 Assessment & Plan (1) Atrial fibrillation with RVR: He was diagnosed with atrial fibrillation in September of this year. He was started on rate control medications as his atrial fibrillation was of unknown duration and he is not generally been symptomatic. However, it is unclear if he has had adequate rate control. He certainly presented with elevated ventricular rates. Whether this is an exacerbation possibly due to decompensated diastolic heart failure or simply poor rate control chronically is unclear. There is no other obvious precipitant for his decompensation. Unclear if he had some dietary noncompliance recently. Currently his dose of metoprolol succinate has been doubled to 50 mg twice daily. I Suspect this will improve his overall heart rates. May require some additional adjustment, but this could be affected in the outpatient setting provided he is ambulatory with reasonable rate control. He should continue on rivaroxaban indefinitely. If the patient is ambulatory with reasonable rate control (ie heart rates less than 120 with mild activity), I think he would be safe for discharge on metoprolol succinate 50 mg twice daily. (2) Alzheimer's disease: He does seem to have an element of cognitive dysfunction. He seemed to have some difficulty relaying an accurate history and contradicted himself on occasion. (3) Mitral regurgitation: Mild on most recent echocardiogram. This can be monitored over time. No murmur on examination today. (4) Dyspnea: Dyspnea was likely related both to increased ventricular rates as well as an element of pulmonary vascular congestion. The intervention provided in the emergency room included diuresis which seemed to resolve his symptoms. He is currently on lisinopril hydrochlorothiazide daily. He may benefit from an alteration in this regimen to include lisinopril and furosemide as an alternative. (5) Chest pain: He had extended episodes of chest pain by report. In fact, several days of fairly severe discomfort. No evidence of an acute coronary syndrome. His symptoms were more likely related to pulmonary vascular congestion which appears to have resolved with diuresis. History of Present Illness Reason for Consultation: Atrial fibrillation Requesting Physician: Milagros Attending Physician: Rosalio Haley DO History of Present Illness The patient is a 70-year-old gentleman with a history of atrial fibrillation who presents with atrial fibrillation. The patient's initial diagnosis was made incidentally at a routine evaluation. He was started on anticoagulation as an outpatient. It seems that he had been doing well in till a 1 week ago. The patient then describes the onset of both chest discomfort and breathing difficulty which became progressive over the course of the week. He was vaguely aware of palpitations but this did not appear to be a prominent symptom. He had some difficulty maintaining his usual level of activity due to dyspnea. He did not describe orthopnea. He did not notice any weight gain or lower extremity edema. He did describe some associated dizziness as well and at times appears to have had some gait instability. He did not suffer syncope. Based on the symptoms he presented to the emergency room where he was discovered to have high ventricular rates. He was also felt to have an element of pulmonary vascular congestion and given 1 dose of diuretic. The patient is accustomed to mild activity. He is able to mow his lawn with a push mower and a riding mower. He states that he does have some dyspnea with this activity and even prior to his more recent difficulties stopped fairly frequently to catch his breath. He did not describe any symptoms of chest pain leading up to this week. He does check his oxygen, blood pressure and weight on occasion. He has not noticed any weight gain. He did not feel that his heart rate was elevated until yesterday. This morning he is feeling well. He reports that all of his symptoms have resolved. He has not been ambulatory around his room yet as he has been hooked up to an IV. However, he is anxious for discharge. Allergies Allergy/AdvReac Type Severity Reaction Status Date / Time No Known Allergies Allergy Verified 12/18/20 01:39 Home Medications Medication Instructions Recorded Confirmed Type omeprazole 20 mg capsule,delayed 20 mg PO DAILY #90 cap 05/27/20 12/18/20 Rx release levocetirizine 5 mg tablet 5 mg PO DAILY PRN #90 tab 06/03/20 12/18/20 Rx metoprolol succinate 50 mg 50 mg PO DAILY #90 tab 10/05/20 12/18/20 Rx tablet,extended release 24 hr allopurinol 100 mg tablet 100 mg PO DAILY 12/18/20 12/18/20 History baclofen 10 mg tablet 10 mg PO BID PRN 12/18/20 12/18/20 History citalopram 40 mg tablet 40 mg PO QAM 12/18/20 12/18/20 History donepezil 10 mg tablet 10 mg PO DAILY 12/18/20 12/18/20 History fluticasone propionate 50 1 spray INTRANASAL BID PRN 12/18/20 12/18/20 History mcg/actuation nasal spray,suspension levothyroxine 50 mcg tablet 50 mcg PO QAM 12/18/20 12/18/20 History lisinopril 20 1 tab PO DAILY 12/18/20 12/18/20 History mg-hydrochlorothiazide 25 mg tablet rivaroxaban 20 mg tablet (Xarelto) 20 mg PO QDD 12/18/20 12/18/20 History Patient History Medical History (Updated 12/18/20 @ 08:26 by Ac Cline MD) Community acquired pneumonia History of itching Influenza B Pneumonitis due to fumes and vapors Surgical History History of elbow surgery Family History Denies family history of Ovarian cancer Prostate cancer Myocardial infarction Breast cancer Colorectal cancer Social History Smoking Status: Former smoker Second Hand Exposure: Yes; Hx Alcohol Use: No Hx Substance Use: No Preferred Language: Belgian Communication Ability: Effective Feed Mill Supervisor Required: No Beliefs That Will Affect Care: None marital status: Current Living Situation: Spouse current occupational status: retired Feels Safe at Home: Yes caffeine: Yes (coffee) Dental Care, Regularly: No Physical Activity Frequency: 3-4 Times per Week Seatbelt Use: sometimes Sunscreen Use: No Assistive Devices: None Review of Systems Review of Systems: All systems reviewed & are unremarkable except as noted in HPI & below Physical Exam Physical Exam: The patient is alert and oriented. Mood and affect appeared normal. He answered all questions appropriately. HEENT: Pupils are equal and reactive to light and accommodation. Extraocular movements are intact. The sclerae are anicteric. Neuro: Cranial nerves intact Neck: Patient's neck is supple. He has palpable carotid pulses bilaterally without bruits on auscultation. There is no evidence of jugular venous distention. The thyroid is not enlarged. Lungs: Overall poor air movement. It has occasional expiratory wheeze. No rales. Normal respiratory effort. Cardiac: Heart demonstrates an irregular rhythm and normal rate. Normal S1 and S2. No murmurs on examination. Pulses: The patient has palpable radial pulses bilaterally that are equal in intensity Extremities: There was no evidence of hypoperfusion. There is no cyanosis or clubbing. There is no edema. Skin: I did not appreciate any rashes on examination today. Results & Data ([facility]) Vital Signs (Past 12 Hours) Vital Signs Temp Pulse Pulse Resp BP BP BP 12/18/20 07:25 138/98 12/18/20 07:24 37.1 C 98 H 18 154/108 H 12/18/20 05:41 12/18/20 05:38 36.4 C L 122 H 22 168/89 H 12/18/20 05:22 141/95 H 12/18/20 05:19 37.1 C 102 H 22 12/18/20 05:00 138 H 13 12/18/20 04:50 104 H 10 L 12/18/20 04:40 95 H 16 12/18/20 04:30 126 H 18 145/70 H 12/18/20 04:29 37.1 C 107 H 22 12/18/20 04:20 0 L 14 12/18/20 04:10 120 H 22 12/18/20 04:01 131 H 12/18/20 03:27 119 H 23 12/18/20 03:25 135 H 152/92 H 12/18/20 03:00 117 H 20 168/108 H 12/18/20 02:40 120 H 18 150/88 H 12/18/20 02:00 135 H 19 155/102 H 12/18/20 01:40 115 H 25 H 12/18/20 01:30 107 H 17 159/109 H 12/18/20 01:25 12/18/20 01:23 12/18/20 01:04 119 H 24 162/105 H 12/18/20 00:54 36.4 C L 119 H 22 154/98 H 12/18/20 00:49 37.1 C 134 H 20 Pulse Ox Pulse Ox 12/18/20 07:25 12/18/20 07:24 94 12/18/20 05:41 94 12/18/20 05:38 95 12/18/20 05:22 12/18/20 05:19 98 12/18/20 05:00 92 12/18/20 04:50 93 12/18/20 04:40 93 12/18/20 04:30 92 12/18/20 04:29 98 12/18/20 04:20 93 12/18/20 04:10 93 12/18/20 04:01 93 12/18/20 03:27 93 12/18/20 03:25 12/18/20 03:00 95 12/18/20 02:40 12/18/20 02:00 94 12/18/20 01:40 94 12/18/20 01:30 94 12/18/20 01:25 94 12/18/20 01:23 89 L 12/18/20 01:04 94 12/18/20 00:54 94 12/18/20 00:49 Laboratory Results Abnormal Lab Results 12/18/20 12/18/20 12/18/20 01:14 01:14 01:14 WBC 8.78 RBC 4.33 L Hgb 13.9 L Hct 41.7 L MCV 96.3 MCH 32.1 MCHC 33.3 RDW Std Deviation 52.4 H RDW Coeff of Tommy 14.8 H Plt Count 216 MPV 10.5 H Immature Gran % (Auto) 0.2 Neut % (Auto) 56.4 Lymph % (Auto) 28.7 [place] % (Auto) 10.4 Eos % (Auto) 3.6 Baso % (Auto) 0.7 Neut # (Auto) 4.95 Lymph # (Auto) 2.52 [place] # (Auto) 0.91 H Eos # (Auto) 0.32 Baso # (Auto) 0.06 Immature Gran # (Auto) 0.02 Absolute Nucleated RBC 0.06 H Nucleated RBC % (auto) 0.7 PT 10.9 INR 1.1 APTT 29.0 PTT Ratio 1.1 D-Dimer 500 Sodium 138 Potassium 3.4 L Chloride 106 Carbon Dioxide 26 Anion Gap 6.0 BUN 15 Creatinine 1.00 Est Cr Clr Drug Dosing 101.4 Est GFR ( Amer) 88.0 Est GFR (Non-Af Amer) 75.9 BUN/Creatinine Ratio 15.5 Glucose 119 H Calcium 8.4 L Total Bilirubin 0.6 AST 38 H ALT 63 Alkaline Phosphatase 73 Troponin I < 0.015 Total Protein 6.8 Albumin 3.6 Globulin 3.2 Albumin/Globulin Ratio 1.1 Lipase 158 COVID-19 Eval Order SARS-CoV-2 (PCR) 12/18/20 12/18/20 01:55 01:55 WBC RBC Hgb Hct MCV MCH MCHC RDW Std Deviation RDW Coeff of Tommy Plt Count MPV Immature Gran % (Auto) Neut % (Auto) Lymph % (Auto) [place] % (Auto) Eos % (Auto) Baso % (Auto) Neut # (Auto) Lymph # (Auto) [place] # (Auto) Eos # (Auto) Baso # (Auto) Immature Gran # (Auto) Absolute Nucleated RBC Nucleated RBC % (auto) PT INR APTT PTT Ratio D-Dimer Sodium Potassium Chloride Carbon Dioxide Anion Gap BUN Creatinine Est Cr Clr Drug Dosing Est GFR ( Amer) Est GFR (Non-Af Amer) BUN/Creatinine Ratio Glucose Calcium Total Bilirubin AST ALT Alkaline Phosphatase Troponin I Total Protein Albumin Globulin Albumin/Globulin Ratio Lipase COVID-19 Eval Order Covid19 at [facility] SARS-CoV-2 (PCR) NEGATIVE Diagnostic Findings Chest x-ray obtained the time admission suggested pulmonary vascular congestion. Also a retrocardiac opacity. Echocardiogram obtained on 10/06/2020 revealed preserved LV systolic function with mild mitral regurgitation. EKG obtained this morning revealed atrial fibrillation and rapid ventricular response. Nonspecific ST and T-wave changes. PG Care Time/CCT Total # of Minutes Spent Total Time Spent with Patient: Total time spent is greater than 50% in coordination of care (as documented) at patient's floor/unit and/or counseling patient: Coding Level of Care Code 12292 Initial Inpt Care Lvl 3 Diagnoses Atrial fibrillation with RVR I48.91 Alzheimer's disease G30.9; F02.80 Mitral regurgitation I34.0 Dyspnea R06.00 Chest pain R07.9
[2020-12-18] MEDS ORDERED: PANTOprazole 40 MG TAB PO SCH (09:00)
[2020-12-18] MEDS ORDERED: CITALOPRAM 40 MG TAB PO SCH (09:00)
[2020-12-18] MEDS ORDERED: METOPROLOL SUCC 50MG EXT REL TAB PO SCH (09:00)
[2020-12-18] MEDS ORDERED: DONEPEZIL HCL 10 MG TAB PO SCH (09:00)
[2020-12-18] MEDS ORDERED: allopurinoL 100 MG TAB PO SCH (09:00)
[2020-12-18] MEDS ORDERED: FUROSEMIDE 40 MG in SYRINGE 0 ML IV ONE (09:30)
[2020-12-18 09:56] LABS: Appearance Urine Clear (Clear); Bacteria Urine Automated Negative (Negative); Bilirubin Urine Negative (Negative); Blood Urine Trace (Negative); Cast Urine Automated 0 /lpf (0-5); Color Urine Yellow; Epithelial Cell Urine Auto 0-5 /lpf (0-5); Glucose Urine UA Negative (Negative); Ketones Urine Negative (Negative); Leukocyte Esterase Urine Negative (Negative); Nitrite Urine Negative (Negative); Protein Urine Negative (Negative); RBC Urine Automated 0-4 /hpf (0-4); Specific Gravity Urine 1.009 (1.000-1.030); Urobilinogen Urine Negative (Negative); pH Urine 7.5 (4.5-7.5)
[2020-12-18 10:07] LABS: Creatine Kinase 176 U/L (39-308); Magnesium 1.8 mg/dl (1.8-2.4); NT Pro B Type Natriuretic Pept 2081 pg/ml (0-900); Troponin I < 0.015 ng/ml (0-0.045)
--- NOTE | 2020-12-18 10:25 | Electrocardiogram Report ---
Test Reason : Blood Pressure : / mmHG Vent. Rate : 122 BPM Atrial Rate : 117 BPM P-R Int : 000 ms QRS Dur : 090 ms QT Int : 310 ms P-R-T Axes : 000 039 050 degrees QTc Int : 441 ms Atrial fibrillation with rapid ventricular response Nonspecific ST and T wave abnormality Abnormal ECG When compared with ECG of 22-JAN-2001 12:12, Atrial fibrillation has replaced Sinus rhythm Nonspecific T wave abnormality, worse in Inferior leads Confirmed by Arpan Cline ([id number]) on 12/18/2020 10:24:55 AM Referred By: REFERRED SELF Confirmed By:Zeyad Cline
[2020-12-18] MEDS ORDERED: METOPROLOL SUCC 25MG EXT REL TAB PO ONE (12:30)
[2020-12-18] MEDS ORDERED: RIVAROXABAN 20 MG TAB PO SCH (16:30)
--- NOTE | 2020-12-18 18:35 | Discharge Summary ---
Date of Service December 18, 2020 Admission HPI Per Admitting Provider The patient is a 70-year-old male with a past medical history including persistent atrial fibrillation, impaired fasting glucose, chronic back pain, hypothyroidism, gout, depression, hypertension, SDAT, GERD, allergic rhinitis, muscle spasm and morbid obesity. He has had some medication adjustments a few weeks ago, and reports that since that time he has not felt as well, with symptoms of chest discomfort and shortness of breath. Assessment in the emergency department revealed atrial fibrillation with RVR with rate 140-150. He was initially given a Cardizem 20 mg IV bolus and then started on 5 mg/h continuous Cardizem infusion. This was then discontinued due to inadequate response. The patient was then given metoprolol succinate 50 mg p.o. x1, and Lopressor 5 mg IV x2, by 30 minutes. This brought his heart rate into the 90s, and still maintain good blood pressure. Principal Diagnosis Working diagnoses: 1. Atrial fibrillation with rapid ventricular response 2. Pulmonary edemasecondary to #1 3. Hypokalemiareplaced Discharge Exam General: Resting comfortably in his hospital bed. NAD. Neck: No JVD. Negative hepatojugular reflex Cardiac: Irregularly irregular with a rate of 98 bpm Lungs: Initially when seen, he had audible wheezes at the bedside and mild conversational dyspnea. End expiratory wheezes with crackles at the bases. Following 40 mg of IV Lasix, his audible wheezes at bedside cleared, his dyspnea improved, and he had no adventitious breath sounds Abdomen: Normoactive X4. Soft and nontender in all quadrants. Extremities: No peripheral clubbing cyanosis or edema Neuro: A&O X4 cranial nerves II through XII are grossly intact no focal neuro deficits Skin: No obvious skin lesions or rashes Discharge Data Allergies Allergy/AdvReac Type Severity Reaction Status Date / Time No Known Allergies Allergy Verified 12/18/20 01:39 Consultations 12/18/20 02:47 ED Decision to Admit Stat 12/18/20 05:23 Consult Cardiology Routine He was diagnosed with atrial fibrillation in September of this year. He was started on rate control medications as his atrial fibrillation was of unknown duration and he is not generally been symptomatic. However, it is unclear if he has had adequate rate control. He certainly presented with elevated ventricular rates. Whether this is an exacerbation possibly due to decompensated diastolic heart failure or simply poor rate control chronically is unclear. There is no other obvious precipitant for his decompensation. Unclear if he had some dietary noncompliance recently. Currently his dose of metoprolol succinate has been doubled to 50 mg twice daily. I Suspect this will improve his overall heart rates. May require some additional adjustment, but this could be affected in the outpatient setting provided he is ambulatory with reasonable rate control. He should continue on rivaroxaban indefinitely. Procedures Performed EKG: A. fib with RVR Hospital Course (1) Atrial fibrillation with RVR: Atrial fibrillation with RVR/persistent atrial fibrillation/hypertens ion/hypokalemia- Initially given 20 mg of Cardizem IV push and started on a 5 mg/HR infusion with little response Was subsequently given a 50 mg dose of oral metoprolol (typically takes 25 mg) followed by 5 mg IV x1 and subsequently hospitalized His initial troponin was negative. This has since been cycled and remained negative His EKG shows no acute changes but atrial fib. Monitor showing variable response in the 90s to 118 with standing/exertion A subsequent dose of 12.5 was given (for a total of 75 mg) and his rate overall improved into the 90s (110 with exertion) Magnesium normal at 1.8 TSH normal at 4.8 He did have some pulmonary edema likely rate related that has since improved with IV Lasix Patient is adamant that he wants to be discharged today. I advised keeping him overnight to ensure that his rate does not improved with added exertion; however, he wants to be discharged. Was seen by cardiology and is up-to-date with his echocardiogram At this point, A. fib is not new onset. Overall, his rate is controlled as it is in the 90s at rest and as high as 118 with exertion. Cardiology feels comfortable discharging this patient to home and will continue to titrate medications as needed as an outpatient. He will follow up with cardiology this week (2) Persistent atrial fibrillation: See above (3) Hypothyroidism: Continue levothyroxine 50 mcg every morning (4) Gout: Continue allopurinol 100 mg p.o. daily (5) Depression: Continue citalopram 40 mg every morning (6) Hypertension: (7) Alzheimer's disease: Continue donepezil 10 mg p.o. daily (8) GERD (gastroesophageal reflux disease): Continue omeprazole/pantoprazole 20 mg p.o. daily Total Time Total Time Spent Total Time Spent (In Minutes): 60 minutes Discharge Plan Discharge Items Patient Disposition: Home - Self-Care Reason For Visit: ATRIAL FIB WITH RVR Discharge Diagnosis: 1. Atrial Fibrillation- Rate improved 2. Mild Pulmonary Vascular Congestion (fluid in the lungs) due to heart rate that was too fast Condition on Discharge: Good Activity: As commented below Activity Comment: as tolerated Non-emergency contact: Primary Care Provider and Operations Manager Call non-emergency contact if: you have any medication questions and your symptoms worsen Follow-up/Referrals: Carmelina Hager CRNP [Primary Care Provider] - Diet: Carb Consistent or DM2 and Heart Healthy Addtl Attending Provider Instructions: - Note that your Metoprolol has been increased to 75mg TWICE A DAY for added rate control - You were given multiple doses of lasix as you had some fluid in the lungs (likely related to the fast heart rate) - follow up with cardiology this week - Return to the Ed as needed Pending Studies at Discharge: No Stand-Alone Forms: My [facility] Medications and DC Order Prescriptions: New metoprolol succinate 50 mg Tablet Extended Release 24 Hr 75 mg PO BID Qty: 90 RF: 0 Continued omeprazole 20 mg capsule,delayed release(DR/EC) 20 mg PO DAILY Qty: 90 RF: 3 levocetirizine 5 mg tablet 5 mg PO DAILY PRN (Reason: allergy symptoms) Qty: 90 RF: 3 citalopram 40 mg tablet 40 mg PO QAM RF: 0 donepezil 10 mg tablet 10 mg PO DAILY RF: 0 allopurinol 100 mg tablet 100 mg PO DAILY RF: 0 baclofen 10 mg tablet 10 mg PO BID PRN (Reason: MUSCLE SPASMS) RF: 0 levothyroxine 50 mcg tablet 50 mcg PO QAM RF: 0 lisinopril-hydrochlorothiazide 20-25 mg tablet 1 tab PO DAILY RF: 0 fluticasone propionate 50 mcg/actuation spray,suspension 1 spray intranasal BID PRN (Reason: Nasal Congestion) RF: 0 Xarelto 20 mg tablet 20 mg PO QDD RF: 0 Discontinued metoprolol succinate 50 mg tablet extended release 24 hr 50 mg PO DAILY Qty: 90 RF: 3 Discharge Orders: Discharge Order (Routine); Ordered 12/18/20 Ordered By: Hayley Lopes/Other Patient Handouts: Your Heart's Electrical System, Discharge Instructions for Atrial ... Admission Data Admit Date/Time: 12/18/20 04:08 Attending Provider: Rosalio Haley Admit Provider: Sd Linares Primary Care Provider: Carmelina Hager Other Providers: Sd Linares ; Marques Mark Other Interventions: Discharge Summary Assessment (RN) Last Done: 12/18/20 14:46 Supervising Physician Co-Signing Physician Notes Patient seen and examined on the day of discharge. I agree with the discharge summary by Hayley LOCKHATR. I have reviewed the chart including labs, imaging and plans for discharge. patient doing well, HR controlled with increased dose of Toprol at 75mg BID he mentioned his Xarelot is really expensive, $400 a month, he can't afford that I provided him with Xarelto discount cards to take to his pharmacy to try to get it at $10 a month eating well, no chest pain, no dyspnea - Atrial fibrillation with RVR: rates now reasonably controlled with increased dose of Toprol was on 50mg this morning but HR > 100 at rest still and up to 130 when ambu lating, no symptoms will increase a little further to 75mg BID continue on Xarelto for stroke prevention follow up with cardiology for further titration of medications Coding Level of Care Code Established Pt OBSERV/HOSP SAME DATE LVL 3 Patient Type Established Diagnoses Atrial fibrillation with RVR I48.91 Persistent atrial fibrillation I48.19 Hypothyroidism E03.9 Gout M10.9 Depression F32.9 Hypertension I10 Alzheimer's disease G30.9; F02.80 GERD (gastroesophageal reflux disease) K21.9 Time Spent (min) 60
--- NOTE | 2020-12-21 15:36 | Electrocardiogram Report ---
Test Reason : Blood Pressure : / mmHG Vent. Rate : 097 BPM Atrial Rate : 250 BPM P-R Int : 000 ms QRS Dur : 088 ms QT Int : 338 ms P-R-T Axes : 000 000 020 degrees QTc Int : 429 ms Poor data quality, interpretation may be adversely affected Atrial fibrillation Abnormal ECG When compared with ECG of 18-DEC-2020 01:04, Nonspecific T wave abnormality, improved in Inferior leads Nonspecific T wave abnormality now evident in Anterior leads Confirmed by Arpan Cline ([id number]) on 12/21/2020 3:35:45 PM Referred By: REFERRED SELF Confirmed By:Zeyad Cline
--- NOTE | 2020-12-28 09:15 | Coding Query ---
To promote full compliance with coding requirements relating to patient care, provider participation is requested in all cases of broodmare foreman uncertainty. Please assist us with the question(s) below: Coding Question(s): The diagnosis below was documented in the Cardiology Consultation, then subsequently fell off all further documentation. Please indicate if it is still a possible diagnosis or ruled out. Physician's Response(s): POSSIBLE DECOMPENSATED DIASTOLIC HEART FAILURE ( x ) Diagnosed and POA, due to atrial fibrillation with RVR impairing filling time ( ) Diagnosed and not POA ( ) Ruled out ( ) Other (please specify) MTDD
== END 2020-12-18 15:19 | disposition home or self-care (01) | DRG 308 ==
LOC: ED 00:49 → SUATTDRO 04:08 → 2E 04:08